=== PATIENT | male | born 1965 | race Two or more races ===

== ENCOUNTER 2020-08-03 20:48 | Inpatient (IN) ==
[2020-08-03 22:12] LABS: Basophils % 0.2 % (0.0-0.8); Eosinophils % 0.5 % (0.00-10.9); Hematocrit 47.3 VOL% (42.0-52.0); Hemoglobin 16.5 GM/DL (14.0-18.0); Immature Granulocytes % 0.7 %; Immature Granulocytes Absolute 0.03 #; Lymphocytes % 22.7 % (21.2-54.2); Mean Corpuscular HGB Conc 34.9 GM/DL (32-36); Mean Corpuscular Volume 83.4 FL (87-102); Mean Platelet Volume 11.1 FL (9.6-12.0); Monocytes % 13.4 % (1.7-12.7); Neutrophils % 62.5 % (38.7-73.9); Platelet Count 183 T/CUMM (130-400); Red Blood Count 5.67 MC/CUMM (3.8-5.5); Red Cell Distribution Width 12.4 % (9.3-17.3); White Blood Count 4.3 T/CUMM (4-12)
[2020-08-03] MEDS ORDERED: SODIUM CHLORIDE 0.9% 1,000 ML IV STA (22:19)
[2020-08-03 22:24] LABS: Albumin 3.1 G/DL (3.4-5.0); Bilirubin,Total 1.3 MG/DL (0.2-1.0); Calcium 8.9 MG/DL (8.5-10.1); Osmolality,Calculated 277.1 MOS/KG (273-304); Total Protein 7.1 G/DL (6.4-8.3)
[2020-08-03] MEDS ORDERED: cefTRIAXone 1,000 MG in SODIUM CHLORIDE 0.9% 100 ML IV STA (22:55)
[2020-08-03 22:59] LABS: Hypochromasia 1+; Platelet Estimate Normal
[2020-08-03] MEDS ORDERED: SODIUM CHLORIDE 0.9% 1,000 ML IV ONE (23:13)
[2020-08-03] MEDS ORDERED: ALBUTEROL INHALER 18 GM INH PRN (23:20)
[2020-08-03 23:24] LABS: ABG Base Excess 4.7 MMOL/L (-2.5-2.5); ABG HCO3 28.6 MMOL/L (20-26); ABG Oxygen Saturation 96.8 % (95-100); ABG PCO2 39.1 MM HG (35-48); ABG PH 7.472 (7.35-7.45); ABG PO2 84.7 MM HG (80-95); ABG TCO2 24.3 MMOL/L (23-27)
[2020-08-03] MEDS ORDERED: ACETAMINOPHEN 325 MG TABLET PO PRN (23:25)
[2020-08-03] MEDS ORDERED: ALUMINUM/MAGNES/SIMETH MAX STR 30 ML UDCUP PO PRN (23:25)
[2020-08-03] MEDS ORDERED: ONDANSETRON 4 MG/2 ML VIAL IV PRN (23:25)
[2020-08-03] MEDS ORDERED: MORPHINE 4 MG/1 ML VIAL IV PRN (23:25)
[2020-08-03] MEDS ORDERED: ZALEPLON 5 MG CAPSULE PO PRN (23:25)
[2020-08-03] MEDS ORDERED: DEXTROSE 50% 25 GM/50 ML VIAL IV PRN ×2 (23:25)
[2020-08-03] MEDS ORDERED: hydrALAZINE 20 MG/1 ML VIAL IV PRN (23:25)
[2020-08-03] MEDS ORDERED: guaiFENesin/DM ER 600-30 MG TABLET PO PRN (23:25)
[2020-08-03] MEDS ORDERED: diphenhydrAMINE CAP 25 MG CAPSULE PO PRN (23:25)
[2020-08-03] MEDS ORDERED: DOCUSATE SODIUM 100 MG CAPSULE PO PRN (23:25)
[2020-08-03] MEDS ORDERED: NICOTINE 21 MG/24 HR PATCH TRANSDERM PRN (23:25)
[2020-08-03] MEDS ORDERED: GLUCAGON 1 MG VIAL IM PRN ×2 (23:25)
[2020-08-03] MEDS ORDERED: SIMETHICONE CHEW 125 MG TABLET PO PRN (23:25)
[2020-08-03] MEDS ORDERED: AZITHROMYCIN INJ 500 MG in SODIUM CHLORIDE 0.9% 250 ML IV SCH (23:30)
[2020-08-04] MEDS ORDERED: ENOXAPARIN 120 MG/0.8 ML SYRINGE SUBCUT SCH
[2020-08-04 01:05] LABS: Basophils % 0.3 % (0.0-0.8); Eosinophils % 0.5 % (0.00-10.9); Hematocrit 44.3 VOL% (42.0-52.0); Hemoglobin 15.2 GM/DL (14.0-18.0); Immature Granulocytes % 0.5 %; Immature Granulocytes Absolute 0.02 #; Lymphocytes % 25.1 % (21.2-54.2); Mean Corpuscular HGB Conc 34.3 GM/DL (32-36); Mean Corpuscular Volume 84.9 FL (87-102); Mean Platelet Volume 10.4 FL (9.6-12.0); Neutrophils % 59.6 % (38.7-73.9); Platelet Count 171 T/CUMM (130-400); Red Blood Count 5.22 MC/CUMM (3.8-5.5); Red Cell Distribution Width 12.6 % (9.3-17.3); White Blood Count 3.9 T/CUMM (4-12)
[2020-08-04] MEDS: SODIUM CHLORIDE 0.9% 1,000 ML IV SCH ×2 (01:13→14:23)
[2020-08-04 01:34] LABS: Albumin 2.8 G/DL (3.4-5.0); Bilirubin,Total 0.9 MG/DL (0.2-1.0); Calcium 8.2 MG/DL (8.5-10.1); Total Protein 6.5 G/DL (6.4-8.3)
[2020-08-04 02:46] LABS: Platelet Estimate Normal
[2020-08-04] MEDS: ALBUTEROL INHALER 18 GM INH SCH ×5 (05:30→19:05)
[2020-08-04] MEDS ORDERED: POTASSIUM CHLORIDE 20 MEQ TABLET PO ONE (06:49)
[2020-08-04] MEDS: PANTOPRAZOLE 40 MG TABLET PO SCH (08:16)
[2020-08-04] MEDS: INSULIN LISPRO 100 UNIT/ML SUBCUT SCH ×4 (08:16→20:47)
[2020-08-04] MEDS: AZITHROMYCIN 250 MG TABLET PO SCH (08:17)
[2020-08-04] MEDS: ENOXAPARIN 40 MG/0.4 ML SYRINGE SUBCUT SCH (12:15)
[2020-08-04] MEDS: POTASSIUM CHLORIDE 20 MEQ TABLET PO SCH (12:15)
[2020-08-04] MEDS: DEXAMETHASONE 10 MG/1 ML VIAL IV SCH (15:43)
[2020-08-04] MEDS: cefTRIAXone 1,000 MG in SYRINGE 1 EACH IV SCH (20:48)
[2020-08-05] MEDS: ENOXAPARIN 40 MG/0.4 ML SYRINGE SUBCUT SCH ×3 (00:13→23:56)
[2020-08-05] MEDS: ALBUTEROL INHALER 18 GM INH SCH ×7 (00:27→23:56)
[2020-08-05] MEDS: SODIUM CHLORIDE 0.9% 1,000 ML IV SCH ×2 (01:57→13:50)
[2020-08-05 06:16] LABS: Basophils % 0.4 % (0.0-0.8); Hematocrit 42.9 VOL% (42.0-52.0); Hemoglobin 14.4 GM/DL (14.0-18.0); Immature Granulocytes % 1.1 %; Immature Granulocytes Absolute 0.03 #; Lymphocytes # 0.9 10*3/uL (1.4-4.0); Lymphocytes % 31.3 % (21.2-54.2); Mean Corpuscular HGB Conc 33.6 GM/DL (32-36); Mean Platelet Volume 10.7 FL (9.6-12.0); Monocytes % 18.2 % (1.7-12.7); Platelet Count 160 T/CUMM (130-400); Red Blood Count 5.05 MC/CUMM (3.8-5.5); Red Cell Distribution Width 12.7 % (9.3-17.3); White Blood Count 2.8 T/CUMM (4-12)
[2020-08-05 06:33] LABS: Calcium 8.2 MG/DL (8.5-10.1); Osmolality,Calculated 283.5 MOS/KG (273-304)
[2020-08-05 06:46] LABS: Hypochromasia 1+; Lymphocytes 28 % (20-55); Microcytosis 1+; Platelet Estimate Adequate; Segmented Neutrophils 49 % (50-85); Total Cells Counted 100
[2020-08-05 06:51] LABS: Ferritin 1635.7 ng/ml (26-388)
[2020-08-05] MEDS: AZITHROMYCIN 250 MG TABLET PO SCH (09:15)
[2020-08-05] MEDS: DEXAMETHASONE 10 MG/1 ML VIAL IV SCH (09:15)
[2020-08-05] MEDS: POTASSIUM CHLORIDE 20 MEQ TABLET PO SCH (09:15)
[2020-08-05] MEDS: INSULIN LISPRO 100 UNIT/ML SUBCUT SCH ×4 (09:15→20:00)
[2020-08-05] MEDS: PANTOPRAZOLE 40 MG TABLET PO SCH (09:15)
[2020-08-05] MEDS ORDERED: REMDESIVIR 200 MG in SODIUM CHLORIDE 0.9% 210 ML IV ONE (14:00)
[2020-08-05] MEDS ORDERED: SODIUM CHLORIDE 0.9% 1,000 ML IV PRN (14:54)
[2020-08-05] MEDS: cefTRIAXone 1,000 MG in SYRINGE 1 EACH IV SCH (20:00)
[2020-08-06] MEDS: ALBUTEROL INHALER 18 GM INH SCH ×6 (03:14→23:08)
[2020-08-06 06:31] LABS: Hematocrit 43.3 VOL% (42.0-52.0); Hemoglobin 14.9 GM/DL (14.0-18.0); Immature Granulocytes % 0.7 %; Immature Granulocytes Absolute 0.04 #; Lymphocytes # 0.8 10*3/uL (1.4-4.0); Lymphocytes % 15.6 % (21.2-54.2); Mean Corpuscular HGB Conc 34.4 GM/DL (32-36); Mean Corpuscular Volume 84.2 FL (87-102); Mean Platelet Volume 10.3 FL (9.6-12.0); Monocytes % 10.6 % (1.7-12.7); Neutrophils % 73.1 % (38.7-73.9); Platelet Count 205 T/CUMM (130-400); Red Blood Count 5.14 MC/CUMM (3.8-5.5); Red Cell Distribution Width 12.8 % (9.3-17.3); White Blood Count 5.4 T/CUMM (4-12)
[2020-08-06 06:50] LABS: Calcium 8.4 MG/DL (8.5-10.1); Osmolality,Calculated 289.1 MOS/KG (273-304)
[2020-08-06 07:06] LABS: Ferritin 1629.1 ng/ml (26-388)
[2020-08-06] MEDS: POTASSIUM CHLORIDE 20 MEQ TABLET PO SCH (09:15)
[2020-08-06] MEDS: AZITHROMYCIN 250 MG TABLET PO SCH (09:15)
[2020-08-06] MEDS: PANTOPRAZOLE 40 MG TABLET PO SCH (09:15)
[2020-08-06] MEDS: INSULIN LISPRO 100 UNIT/ML SUBCUT SCH ×4 (09:15→22:00)
[2020-08-06] MEDS: DEXAMETHASONE 10 MG/1 ML VIAL IV SCH (09:15)
[2020-08-06] MEDS: REMDESIVIR 100 MG in SODIUM CHLORIDE 0.9% 230 ML IV SCH (09:18)
[2020-08-06] MEDS: ENOXAPARIN 40 MG/0.4 ML SYRINGE SUBCUT SCH ×2 (12:00→23:08)
[2020-08-06] MEDS: POTASSIUM CHLORIDE 20 MEQ TABLET PO PRN ×4 (12:15→18:30)
[2020-08-06] MEDS: cefTRIAXone 1,000 MG in SYRINGE 1 EACH IV SCH (22:00)
[2020-08-07] MEDS: ALBUTEROL INHALER 18 GM INH SCH ×6 (03:38→23:35)
[2020-08-07 06:43] LABS: Calcium 8.6 MG/DL (8.5-10.1); Osmolality,Calculated 291.3 MOS/KG (273-304)
[2020-08-07 06:44] LABS: Hematocrit 42.4 VOL% (42.0-52.0); Hemoglobin 14.5 GM/DL (14.0-18.0); Immature Granulocytes % 1.1 %; Immature Granulocytes Absolute 0.05 #; Mean Corpuscular HGB Conc 34.2 GM/DL (32-36); Mean Corpuscular Volume 83.5 FL (87-102); Mean Platelet Volume 10.7 FL (9.6-12.0); Monocytes % 16.1 % (1.7-12.7); Neutrophils % 59.8 % (38.7-73.9); Platelet Count 229 T/CUMM (130-400); Red Blood Count 5.08 MC/CUMM (3.8-5.5); Red Cell Distribution Width 12.7 % (9.3-17.3); White Blood Count 4.5 T/CUMM (4-12)
[2020-08-07 06:45] LABS: Ferritin 1591.1 ng/ml (26-388)
[2020-08-07 07:17] LABS: Hypochromasia 1+; Lymphocytes 16 % (20-55); Microcytosis 1+; Ovalocytes Slight; Platelet Estimate Adequate; Segmented Neutrophils 69 % (50-85); Total Cells Counted 100
[2020-08-07] MEDS: INSULIN LISPRO 100 UNIT/ML SUBCUT SCH ×4 (08:06→21:58)
[2020-08-07] MEDS: PANTOPRAZOLE 40 MG TABLET PO SCH (08:07)
[2020-08-07] MEDS: POTASSIUM CHLORIDE 20 MEQ TABLET PO SCH (08:07)
[2020-08-07] MEDS: DEXAMETHASONE 10 MG/1 ML VIAL IV SCH (08:07)
[2020-08-07] MEDS: AZITHROMYCIN 250 MG TABLET PO SCH (08:08)
[2020-08-07] MEDS: REMDESIVIR 100 MG in SODIUM CHLORIDE 0.9% 230 ML IV SCH (09:01)
[2020-08-07] MEDS: ENOXAPARIN 40 MG/0.4 ML SYRINGE SUBCUT SCH ×2 (12:03→23:35)
[2020-08-07] MEDS: cefTRIAXone 1,000 MG in SYRINGE 1 EACH IV SCH (21:56)
[2020-08-08] MEDS: ALBUTEROL INHALER 18 GM INH SCH ×6 (03:17→22:55)
[2020-08-08 06:50] LABS: Basophils % 0.3 % (0.0-0.8); Eosinophils % 0.5 % (0.00-10.9); Hematocrit 43.5 VOL% (42.0-52.0); Hemoglobin 14.8 GM/DL (14.0-18.0); Immature Granulocytes % 1.3 %; Immature Granulocytes Absolute 0.08 #; Lymphocytes # 1.6 10*3/uL (1.4-4.0); Lymphocytes % 25.2 % (21.2-54.2); Mean Corpuscular Volume 83.7 FL (87-102); Mean Platelet Volume 10.6 FL (9.6-12.0); Monocytes % 13.5 % (1.7-12.7); Neutrophils % 59.2 % (38.7-73.9); Platelet Count 265 T/CUMM (130-400); Red Cell Distribution Width 12.8 % (9.3-17.3); White Blood Count 6.2 T/CUMM (4-12)
[2020-08-08 07:11] LABS: Calcium 8.5 MG/DL (8.5-10.1); Osmolality,Calculated 288.4 MOS/KG (273-304)
[2020-08-08] MEDS: DEXAMETHASONE 10 MG/1 ML VIAL IV SCH (08:10)
[2020-08-08] MEDS: AZITHROMYCIN 250 MG TABLET PO SCH (08:10)
[2020-08-08] MEDS: PANTOPRAZOLE 40 MG TABLET PO SCH (08:10)
[2020-08-08] MEDS: POTASSIUM CHLORIDE 20 MEQ TABLET PO SCH (08:10)
[2020-08-08] MEDS: INSULIN LISPRO 100 UNIT/ML SUBCUT SCH ×4 (09:37→21:27)
[2020-08-08] MEDS: REMDESIVIR 100 MG in SODIUM CHLORIDE 0.9% 230 ML IV SCH (09:38)
[2020-08-08] MEDS: ENOXAPARIN 40 MG/0.4 ML SYRINGE SUBCUT SCH ×2 (12:31→22:55)
[2020-08-08] MEDS: cefTRIAXone 1,000 MG in SYRINGE 1 EACH IV SCH (21:27)
[2020-08-09] MEDS: ALBUTEROL INHALER 18 GM INH SCH ×6 (03:20→23:54)
[2020-08-09 05:58] LABS: Basophils % 0.3 % (0.0-0.8); Eosinophils % 0.5 % (0.00-10.9); Hematocrit 43.5 VOL% (42.0-52.0); Immature Granulocytes % 1.6 %; Immature Granulocytes Absolute 0.12 #; Lymphocytes % 26.2 % (21.2-54.2); Mean Corpuscular HGB Conc 34.5 GM/DL (32-36); Mean Corpuscular Volume 83.3 FL (87-102); Mean Platelet Volume 10.3 FL (9.6-12.0); Neutrophils % 60.4 % (38.7-73.9); Platelet Count 276 T/CUMM (130-400); Red Blood Count 5.22 MC/CUMM (3.8-5.5); Red Cell Distribution Width 12.7 % (9.3-17.3); White Blood Count 7.4 T/CUMM (4-12)
[2020-08-09 06:20] LABS: Calcium 8.6 MG/DL (8.5-10.1); Osmolality,Calculated 283.5 MOS/KG (273-304)
[2020-08-09] MEDS: POTASSIUM CHLORIDE 20 MEQ TABLET PO SCH (10:08)
[2020-08-09] MEDS: INSULIN GLARGINE 100 UNIT/ML SUBCUT SCH (10:09)
[2020-08-09] MEDS: INSULIN LISPRO 100 UNIT/ML SUBCUT SCH ×4 (10:09→21:47)
[2020-08-09] MEDS: PANTOPRAZOLE 40 MG TABLET PO SCH (10:09)
[2020-08-09] MEDS: REMDESIVIR 100 MG in SODIUM CHLORIDE 0.9% 230 ML IV SCH (10:10)
[2020-08-09] MEDS: ENOXAPARIN 40 MG/0.4 ML SYRINGE SUBCUT SCH ×2 (13:00→23:54)
[2020-08-09] MEDS: DEXAMETHASONE 10 MG/1 ML VIAL IV SCH (13:01)
[2020-08-09] MEDS: NYSTATIN POWDER 15 GM BOTTLE TOP SCH ×2 (16:14→21:54)
[2020-08-09] MEDS: cefTRIAXone 1,000 MG in SYRINGE 1 EACH IV SCH (21:49)
[2020-08-10] MEDS: ALBUTEROL INHALER 18 GM INH SCH ×3 (03:39→12:09)
[2020-08-10 05:10] LABS: Calcium 8.9 MG/DL (8.5-10.1); Osmolality,Calculated 283.8 MOS/KG (273-304)
[2020-08-10 05:27] LABS: Basophils % 0.3 % (0.0-0.8); Eosinophils % 0.3 % (0.00-10.9); Hemoglobin 15.2 GM/DL (14.0-18.0); Immature Granulocytes % 1.1 %; Lymphocytes # 1.7 10*3/uL (1.4-4.0); Lymphocytes % 19.9 % (21.2-54.2); Mean Corpuscular HGB Conc 33.8 GM/DL (32-36); Mean Corpuscular Volume 85.1 FL (87-102); Mean Platelet Volume 10.6 FL (9.6-12.0); Monocytes % 9.4 % (1.7-12.7); Platelet Count 298 T/CUMM (130-400); Red Blood Count 5.29 MC/CUMM (3.8-5.5); Red Cell Distribution Width 12.5 % (9.3-17.3); White Blood Count 8.8 T/CUMM (4-12)
[2020-08-10] MEDS: POTASSIUM CHLORIDE 20 MEQ TABLET PO SCH (08:37)
[2020-08-10] MEDS: INSULIN LISPRO 100 UNIT/ML SUBCUT SCH ×2 (08:38→12:09)
[2020-08-10] MEDS: PANTOPRAZOLE 40 MG TABLET PO SCH (08:38)
[2020-08-10] MEDS: DEXAMETHASONE 10 MG/1 ML VIAL IV SCH (08:38)
[2020-08-10] MEDS: NYSTATIN POWDER 15 GM BOTTLE TOP SCH (08:39)
[2020-08-10] MEDS: INSULIN GLARGINE 100 UNIT/ML SUBCUT SCH (08:39)
[2020-08-10 12:06] VITALS: BP 129/78
[2020-08-10] MEDS: ENOXAPARIN 40 MG/0.4 ML SYRINGE SUBCUT SCH (12:09)
== END 2020-08-10 13:24 | disposition home or self-care (01) | DRG 177 ==
LOC: N.ED 20:48 → N.EDINP 23:26 → SUATTDRO 23:26 → N.2E 08-04 00:36
PROVIDERS: ADMIT Emergency Medicine; ATTEND Internal Medicine